=== PATIENT | female | born 1990 | race Caucasian/White ===

== ENCOUNTER → 2017-08-22 | Outpatient (CLI) | payer BC | END | disposition home or self-care (01) | LOC: GMA 19:00 | PROVIDERS: ATTEND Nurse Practitioner Family | DX: R30.0 Dysuria (principal) ==

== ENCOUNTER → 2020-09-21 | Outpatient (CLI) | payer BC | LOC: GMAM 10:36 | PROVIDERS: ATTEND Family Medicine | DX: R63.4 Abnormal weight loss (principal) ==

== ENCOUNTER → 2020-10-31 | Outpatient (CLI) | payer BC | LOC: GMAM 12:23 | PROVIDERS: ATTEND Family Medicine | DX: E53.8 Deficiency of other specified B group vitamins (principal); R63.4 Abnormal weight loss; R30.0 Dysuria; E55.9 Vitamin D deficiency, unspecified ==